=== PATIENT | female | born 1985 | race Caucasian/White ===

== ENCOUNTER 2019-03-15 08:53 | Inpatient (IN) | payer BC, OTHER ==
[~2019-03-15] VITALS: Ht 167.6 cm; Wt 120.9 kg
[~2019-03-15 08:53] MED LIST: BUPR150T13 PO; CALCIUM PO; CHOL5000 PO; CLON0.5T11 PO; CYAN1TAB29 PO; LABE100T6 PO; MULT-806 PO; PREN1TAB28 PO; VITAMIN D PO; ZINC100T PO; ZINC50TA3 PO; prenatal gummies PO
[2019-03-15] MEDS ORDERED: OXYTOCIN 30U/ 0.9% NaCL 500ML 500 ML IV ONE (20:17)
[2019-03-15] MEDS: D5%-LACTATED RINGERS 1,000 ML IV SCH (20:17)
[2019-03-15] MEDS ORDERED: NEWBORN KIT ONE (20:29)
[2019-03-15] MEDS ORDERED: LIDOCAINE 1%, 20ML ONE (20:29)
[2019-03-15] MEDS ORDERED: FENTANYL PF 100 MCG/2ML IV PRN (20:30)
[2019-03-15] MEDS ORDERED: OXYTOCIN 30U/ 0.9% NaCL 500ML 500 ML ONE (20:30)
[2019-03-15] MEDS ORDERED: MISOPROSTOL 200 MCG TABLET ONE (20:30)
[2019-03-15] MEDS ORDERED: TERBUTALINE 1 MG/ML, 1ML IVPush PRN (20:30)
[2019-03-15 20:41] LABS: BASOPHILS # (AUTO) 0.12 x10^3/uL (0-0.1); BASOPHILS % (AUTO) 1 % (0-1); EOSINOPHILS # (AUTO) 0.07 x10^3/uL (0-0.4); EOSINOPHILS % (AUTO) 1 % (1-7); LYMPHOCYTES # (AUTO) 1.41 x10^3/uL (1-3.4); LYMPHOCYTES % (AUTO) 13 % (22-44); MD NO; MEAN CORPUSCULAR HEMOGLOBIN 31.5 pg (27.0-34.8); MEAN CORPUSCULAR HGB CONC 33.3 g/dL (32.4-35.8); MEAN CORPUSCULAR VOLUME 94.6 fL (80-100); MEAN PLATELET VOLUME 6.9 fL (7.4-10.4); MONOCYTES # (AUTO) 0.73 x10^3/uL (0.2-0.8); MONOCYTES % (AUTO) 7 % (2-9); NEUTROPHILS # (AUTO) 8.93 x10^3/uL (1.8-6.8); NEUTROPHILS % (AUTO) 79 % (42-75); PLATELET COUNT 371 x10^3/uL (130-400); RED BLOOD COUNT 3.76 x10^6/uL (3.82-5.3)
[2019-03-15 21:00] VITALS: BP 150/87
[2019-03-15] MEDS: LACTATED RINGERS 1,000 ML IV SCH (21:00)
[2019-03-15 21:01] VITALS: BP 150/87
[2019-03-15] MEDS: MISOPROSTOL 25 MCG TABLET VG PRN (22:00)
[2019-03-15] MEDS ORDERED: MISOPROSTOL 25 MCG TABLET ONE (22:01)
[2019-03-15] MEDS ORDERED: ACETAMINOPHEN 325 MG TABLET PO PRN (23:00)
[2019-03-15] MEDS ORDERED: FAMOTIDINE 20 MG TABLET ONE (23:28)
[2019-03-15] MEDS ORDERED: ACETAMINOPHEN 325 MG TABLET ONE (23:28)
[2019-03-15] MEDS: FAMOTIDINE 20 MG TABLET PO PRN (23:31)
[2019-03-15] MEDS: ACETAMINOPHEN 325 MG TABLET PO PRN (23:31)
[2019-03-16] MEDS ORDERED: MISOPROSTOL 25 MCG TABLET ONE ×2 (02:02→05:57)
[2019-03-16] MEDS: LACTATED RINGERS 1,000 ML IV SCH ×2 (02:06→11:42)
[2019-03-16] MEDS: MISOPROSTOL 25 MCG TABLET VG PRN ×2 (02:15→06:16)
[2019-03-16] MEDS: D5%-LACTATED RINGERS 1,000 ML IV SCH ×3 (04:17→20:17)
[2019-03-16] MEDS: LABETALOL 300 MG TABLET PO SCH ×3 (06:03→22:11)
[2019-03-16] MEDS ORDERED: OXYTOCIN 30U/ 0.9% NaCL 500ML 500 ML IV PRN (08:57)
[2019-03-16] MEDS ORDERED: hydrALAzine 20 MG/ML, 1ML IVPush ONE ×3 (09:00)
[2019-03-16] MEDS ORDERED: ACETAMINOPHEN 325 MG TABLET ONE (09:07)
[2019-03-16] MEDS ORDERED: FAMOTIDINE 20 MG TABLET ONE ×2 (09:08→20:45)
[2019-03-16] MEDS: ACETAMINOPHEN 325 MG TABLET PO PRN (09:09)
[2019-03-16] MEDS: FAMOTIDINE 20 MG TABLET PO PRN ×2 (09:10→20:48)
[2019-03-16] MEDS ORDERED: FENTANYL/BUPIV./NS/PF 250 ML EPIDCONT ONE ×2 (09:50→18:47)
[2019-03-16] MEDS ORDERED: FENTANYL PF 100 MCG/2ML ONE ×6 (11:38→20:45)
[2019-03-16] MEDS: FENTANYL PF 100 MCG/2ML IVPush PRN ×4 (11:39→15:20)
[2019-03-16] MEDS ORDERED: ONDANSETRON 2MG/ML, 2ML ONE ×2 (15:52→23:25)
[2019-03-16] MEDS: ONDANSETRON 2MG/ML, 2ML IVPush PRN ×2 (15:53→23:28)
[2019-03-16] MEDS ORDERED: hydrALAzine 20 MG/ML, 1ML ONE (20:59)
[2019-03-16] MEDS ORDERED: FENTANYL/BUPIV./NS/PF 250 ML EPIDCONT SCH ×2 (21:16→22:08)
[2019-03-16] MEDS: FENTANYL PF 500 MCG, BUPIVACAINE/PF 0.5%, 30ML 62.5 ML in SODIUM CHLORIDE 0.9% 177.5 ML EPIDCONT SCH (21:30)
[2019-03-16] MEDS ORDERED: LACTATED RINGERS 1,000 ML IV SCH (22:08)
[2019-03-16] MEDS ORDERED: BUPIVACAINE 0.25% ONE (22:14)
[2019-03-16] MEDS ORDERED: EPHEDRINE 50 MG/ML, 1ML IVPush PRN (22:30)
[2019-03-16] MEDS ORDERED: LACTATED RINGERS 1,000 ML IVBOLUS PRN (22:30)
[2019-03-16] MEDS ORDERED: NALOXONE 0.4 MG/ML, 1ML IVPush PRN (22:30)
[2019-03-16] MEDS ORDERED: EPHEDRINE 50 MG/ML, 1ML ONE (23:25)
[2019-03-17] MEDS: D5%-LACTATED RINGERS 1,000 ML IV SCH ×3 (04:17→20:17)
[2019-03-17] MEDS: LABETALOL 300 MG TABLET PO SCH ×3 (06:09→22:00)
[2019-03-17] MEDS ORDERED: ACETAMINOPHEN 325 MG TABLET ONE ×2 (07:50→14:27)
[2019-03-17] MEDS: ACETAMINOPHEN 325 MG TABLET PO PRN ×2 (08:03→14:29)
[2019-03-17] MEDS: LACTATED RINGERS 1,000 ML IV SCH ×3 (08:04→20:22)
[2019-03-17] MEDS ORDERED: FAMOTIDINE 20 MG TABLET ONE (09:02)
[2019-03-17] MEDS: FAMOTIDINE 20 MG TABLET PO PRN (09:04)
[2019-03-17] MEDS ORDERED: DIPHENHYDRAMINE 50 MG/ML, 1ML ONE ×2 (09:58→23:59)
[2019-03-17] MEDS: DIPHENHYDRAMINE 50 MG/ML, 1ML IVPush PRN (10:00)
[2019-03-17] MEDS ORDERED: SODIUM CITRATE/CITRIC ACID 15 ML UDC ONE (10:57)
[2019-03-17] MEDS ORDERED: METOCLOPRAMIDE 5 MG/ML, 2ML ONE (10:57)
[2019-03-17] MEDS ORDERED: SODIUM CITRATE/CITRIC ACID 15 ML UDC PO PRN (11:00)
[2019-03-17] MEDS ORDERED: METOCLOPRAMIDE 5 MG/ML, 2ML IVPush PRN (11:00)
[2019-03-17] MEDS ORDERED: LACTATED RINGERS 1,000 ML IV SCH (18:01)
[2019-03-17] MEDS: OXYTOCIN 30U/ 0.9% NaCL 500ML 500 ML IV SCH (18:01)
[2019-03-17] MEDS ORDERED: FENTANYL PF 100 MCG/2ML ONE (18:25)
[2019-03-17] MEDS ORDERED: CARBOPROST TROMETHAMINE 250 MCG/ML, 1ML IM PRN (18:30)
[2019-03-17] MEDS ORDERED: morphine SULFATE 10 MG/ML, 1ML IM PRN (18:30)
[2019-03-17] MEDS ORDERED: MEASLES,MUMPS&RUBELLA VACC/PF 0.5 ML SQ-VACC PRN (18:30)
[2019-03-17] MEDS ORDERED: MISOPROSTOL 200 MCG TABLET PR PRN (18:30)
[2019-03-17] MEDS ORDERED: ACETAMINOPHEN 325 MG TABLET PO PRN (18:30)
[2019-03-17] MEDS ORDERED: ONDANSETRON 2MG/ML, 2ML IV PRN ×2 (18:30→21:00)
[2019-03-17] MEDS ORDERED: DIPH,PERTUSS(ACELL),TET VAC/PF NC IM-VACC PRN (18:30)
[2019-03-17] MEDS ORDERED: OXYcodone/APAP 5/325MG TABLET PO PRN ×2 (18:30)
[2019-03-17] MEDS ORDERED: OXYTOCIN 10 UNITS/ML, 1ML ONE (19:29)
[2019-03-17] MEDS ORDERED: PHENYLEPHRINE 10 MG/ML ONE (19:29)
[2019-03-17] MEDS ORDERED: EPHEDRINE 50 MG/ML, 1ML ONE (19:29)
[2019-03-17] MEDS ORDERED: LIDOCAINE-MPF 2% ,5ML ONE ×2 (19:29→19:32)
[2019-03-17] MEDS ORDERED: BUPIVACAINE/PF 0.25% ONE (19:29)
[2019-03-17] MEDS ORDERED: CEFAZOLIN 1,000 MG ONE ×2 (19:29→19:32)
[2019-03-17] MEDS ORDERED: WATER-INJECTION,STERILE 10 ML IV ONE (19:29)
[2019-03-17] MEDS ORDERED: morphine SULFATE/PF 0.5 MG/ML, 10ML ONE (19:51)
[2019-03-17] MEDS ORDERED: KETOROLAC 30 MG/1 ML ONE (20:19)
[2019-03-17] MEDS ORDERED: MEPERIDINE/PF 50 MG/ML ONE (20:19)
[2019-03-17] MEDS ORDERED: OXYTOCIN 30U/ 0.9% NaCL 500ML 500 ML ONE (20:20)
[2019-03-17] MEDS: KETOROLAC 30 MG/1 ML IV SCH (20:22)
[2019-03-17] MEDS ORDERED: MEPERIDINE/PF 25MG/0.5ML IVPush PRN (20:30)
[2019-03-17] MEDS ORDERED: HYDROmorphone 2 MG/ML, 1ML ONE (20:42)
[2019-03-17] MEDS: HYDROmorphone 2 MG/ML, 1ML IVPush PRN ×2 (20:45→21:00)
[2019-03-17] MEDS ORDERED: FENTANYL PF 100 MCG/2ML IV PRN (21:00)
[2019-03-17] MEDS ORDERED: OXYcodone/APAP 5/325MG TABLET ONE (21:24)
[2019-03-17] MEDS: FENTANYL PF 500 MCG, BUPIVACAINE/PF 0.5%, 30ML 62.5 ML in SODIUM CHLORIDE 0.9% 177.5 ML EPIDCONT SCH (21:30)
[2019-03-17 22:10] VITALS: BP 147/90
[2019-03-17 22:15] VITALS: BP 147/90
[2019-03-18] MEDS: DIPHENHYDRAMINE 50 MG/ML, 1ML IVPush PRN (00:03)
[2019-03-18] MEDS: HYDROcodone/APAP 5/325 TABLET PO PRN ×4 (02:09→18:19)
[2019-03-18] MEDS: KETOROLAC 30 MG/1 ML IV SCH ×4 (02:09→18:34)
[2019-03-18] MEDS: SIMETHICONE 80 MG CHEW TAB PO PRN ×3 (02:09→19:45)
[2019-03-18 02:15] VITALS: BP 133/85
[2019-03-18] MEDS: LACTATED RINGERS 1,000 ML IV SCH ×2 (04:01→14:01)
[2019-03-18] MEDS: OXYTOCIN 30U/ 0.9% NaCL 500ML 500 ML IV SCH ×2 (04:01→14:01)
[2019-03-18] MEDS: LABETALOL 300 MG TABLET PO SCH ×2 (06:00→06:07)
[2019-03-18 06:05] VITALS: BP 129/88
[2019-03-18 06:27] LABS: BASOPHILS # (AUTO) 0.04 x10^3/uL (0-0.1); BASOPHILS % (AUTO) 0 % (0-1); EOSINOPHILS # (AUTO) 0.09 x10^3/uL (0-0.4); EOSINOPHILS % (AUTO) 1 % (1-7); LYMPHOCYTES # (AUTO) 1.31 x10^3/uL (1-3.4); LYMPHOCYTES % (AUTO) 9 % (22-44); MD NO; MEAN CORPUSCULAR HEMOGLOBIN 31.7 pg (27.0-34.8); MEAN CORPUSCULAR HGB CONC 33.1 g/dL (32.4-35.8); MEAN CORPUSCULAR VOLUME 95.8 fL (80-100); MEAN PLATELET VOLUME 7.1 fL (7.4-10.4); MONOCYTES % (AUTO) 7 % (2-9); NEUTROPHILS # (AUTO) 11.91 x10^3/uL (1.8-6.8); NEUTROPHILS % (AUTO) 83 % (42-75); PLATELET COUNT 266 x10^3/uL (130-400); RED BLOOD COUNT 3.06 x10^6/uL (3.82-5.3); RED CELL DISTRIBUTION WIDTH 14.5 % (9.6-15.2)
[2019-03-18] MEDS: LABETALOL 100 MG TABLET PO SCH ×2 (08:06→18:19)
[2019-03-18] MEDS: DOCUSATE 100 MG CAPSULE PO PRN ×2 (08:06→19:45)
[2019-03-18] MEDS: PRENATAL VIT/IRON/FA 1 EACH TABLET PO SCH (08:07)
[2019-03-18 08:14] VITALS: BP 145/90
[2019-03-18 12:51] VITALS: BP 134/81
[2019-03-18] MEDS ORDERED: MEPERIDINE/PF 25MG/0.5ML IM ONE (19:00)
[2019-03-18 19:15] VITALS: BP 132/91
[2019-03-18] MEDS ORDERED: MEPERIDINE/PF 50 MG/ML ONE (19:43)
[2019-03-18] MEDS: IBUPROFEN 600 MG TABLET PO PRN (21:00)
[2019-03-19] MEDS: LACTATED RINGERS 1,000 ML IV SCH (00:01)
[2019-03-19] MEDS: HYDROcodone/APAP 5/325 TABLET PO PRN ×4 (00:34→12:34)
[2019-03-19] MEDS: OXYTOCIN 30U/ 0.9% NaCL 500ML 500 ML IV SCH (00:50)
[2019-03-19] MEDS: KETOROLAC 30 MG/1 ML IV SCH (01:16)
[2019-03-19] MEDS: IBUPROFEN 600 MG TABLET PO PRN ×2 (03:04→08:56)
[2019-03-19 07:40] VITALS: BP 126/89
[2019-03-19] MEDS: PRENATAL VIT/IRON/FA 1 EACH TABLET PO SCH (08:02)
[2019-03-19] MEDS: DOCUSATE 100 MG CAPSULE PO PRN (08:02)
[2019-03-19] MEDS: LABETALOL 100 MG TABLET PO SCH (08:02)
[2019-03-19] MEDS ORDERED: IBUP-1222 PO (13:09)
[2019-03-19] MEDS ORDERED: HYDR-3240 PO (13:10)
[2019-03-19] MEDS ORDERED: LABE100T6 PO (13:12)
== END 2019-03-19 14:40 | disposition home or self-care (01) | DRG 788 ==
LOC: MERGE 14:05 → LDIP 20:08 → 2NW 03-17 21:55
PROVIDERS: ADMIT Obstetrics & Gynecology Maternal & Fetal Medicine; ATTEND Obstetrics & Gynecology Maternal & Fetal Medicine
PROC: 30233S1 Transfusion of Nonautologous Globulin into Peripheral Vein, Percutaneous Approach (ICD-10-PCS; 2019-03-18)
PROC: 3E033VJ Introduction of Other Hormone into Peripheral Vein, Percutaneous Approach (ICD-10-PCS; 2019-03-18)
PROC: 10D00Z1 Extraction of Products of Conception, Low, Open Approach (ICD-10-PCS; principal; 2019-03-19)
DX: O11.4 Pre-existing hypertension with pre-eclampsia, complicating childbirth (principal); O62.1 Secondary uterine inertia; O99.214 Obesity complicating childbirth; E66.9 Obesity, unspecified; O24.92 Unspecified diabetes mellitus in childbirth; O61.9 Failed induction of labor, unspecified; Z3A.37 37 weeks gestation of pregnancy; Z37.0 Single live birth; Z90.49 Acquired absence of other specified parts of digestive tract; Z88.1 Allergy status to other antibiotic agents; Z88.2 Allergy status to sulfonamides
CPT/HCPCS: 36415; J2790; J3490; S0020; 82962; 85025; 85461; 86850; 86900; G0378; J0690; J1170; J1885; J2175; J2274; J2405; J3010; J0360; J1200; J2370; J2590; J2765; J7050; J7120